=== PATIENT | male | born 1975 | race Caucasian/White ===

== ENCOUNTER 2016-06-08 00:41 | Emergency (ER) | payer SELFPAY ==
[~2016-06-08] VITALS: Ht 185.4 cm; Wt 100.0 kg
[2016-06-08 00:43] VITALS: BP 131/99; PULSE 119; RESP 24; TEMP 97.3; O2SAT 98
[2016-06-08 00:54] VITALS: BP 166/88; PULSE 108; RESP 48; O2SAT 99
[2016-06-08] MEDS ORDERED: LORazepam 2 MG/ML VIAL IV PUSH ONE (01:15)
[2016-06-08] MEDS ORDERED: SODIUM CHLORIDE 0.9% FLUSH 5 ML FLUSH IVF PRN (01:15)
[2016-06-08] MEDS ORDERED: RESP: ALBUTEROL 2.5 MG/IPRATROPIUM 0.5 MG NEB (SCH) INH ONE (01:15)
--- NOTE | 2016-06-08 01:20 | RADRPT ---
EXAM DATE/TIME: 06/08/2016 01:05 [place] COMPARISON: No previous studies available for comparison. INDICATIONS : Shortness of breath. MEDICAL HISTORY : None. SURGICAL HISTORY : None. ENCOUNTER: Initial ACUITY: 1 week PAIN SCORE: 0/10 LOCATION: Bilateral chest FINDINGS: A single view of the chest demonstrates the lungs to be symmetrically aerated without evidence of mas s, infiltrate or effusion. The cardiomediastinal contours are unremarkable. Osseous structures are intact. CONCLUSION: The lungs are clear. Miguelangel Turcios MD on June 08, 2016 at 1:18 Board Certified Radiologist. This report was verified electronically.
[2016-06-08 01:28] LABS: AUTOMATED NEUTROPHIL # 5.7 TH/MM3 (1.8-7.7); BASOPHIL % 0.4 % (0.0-2.0); EOSINOPHIL # 0.1 TH/MM3 (0-0.4); EOSINOPHIL % 1.1 % (0.0-4.0); HEMATOCRIT 41.3 % (39.0-51.0); HEMO FLAGS DIFF FINAL; LYMPH % 36.2 % (9.0-44.0); MEAN CELL VOLUME 87.5 FL (80.0-100.0); MEAN CORPUSCULAR HEMOGLOBIN 29.7 PG (27.0-34.0); MONO % 10.6 % (0.0-8.0); NEUT % 51.7 % (16.0-70.0); PLATELET COUNT 275 TH/MM3 (150-450); RED BLOOD COUNT 4.72 MIL/MM3 (4.50-5.90); RED CELL DISTRIBUTION WIDTH 13.6 % (11.6-17.2); WHITE BLOOD COUNT 10.9 TH/MM3 (4.0-11.0)
[2016-06-08 01:51] LABS: ALT (GPT) 24 U/L (12-78); ANION GAP 11 MEQ/L (5-15); AST (GOT) 17 U/L (15-37); BICARBONATE 23.3 MEQ/L (21.0-32.0); BLOOD UREA NITROGEN 18 MG/DL (7-18); CHLORIDE 108 MEQ/L (98-107); GLOMERULAR FILTRATION RATE 58 ML/MIN (>89); POTASSIUM 3.6 MEQ/L (3.5-5.1); SODIUM (NA) 142 MEQ/L (136-145)
[2016-06-08 01:53] LABS: APTT (PATIENT) 25.5 SEC (24.3-30.1); INTERNATIONAL NORMALIZED RATIO 0.9 RATIO; PROTHROMBIN TIME - PATIENT 10.1 SEC (9.8-11.6)
--- NOTE | 2016-06-08 01:54 | PD ---
HPI Chief Complaint: Respiratory Distress Time Seen by Provider: 01:02 Travel History International Travel<30 days: No Contact w/Intl Traveler<30days: No Traveled to known affect area: No History of Present Illness HPI 40-year-old male here for evaluation of shortness of breath. The patient reports that he feels as though he cannot take a deep breath. Symptoms have been going on for the last 3 hours. Reports similar symptoms about 3 weeks ago that lasted throughout the night, then resolved. He smokes about a pack of cigarettes daily. He denies history of cardiopulmonary disease. No chest pain. He states that for the last 3 weeks he has been having a cough that is sometimes productive of greenish sputum. No hemoptysis. No history of DVT or PE. No recent travel or immobilization. [facility] [place] Past Medical History Medical History: Denies Significant Hx Immunizations Current: Yes Influenza Vaccination: No Past Surgical History Surgical History: No Previous Surgery Social History Alcohol Use: Yes Tobacco Use: Yes Substance Use: No Allergies-Medications (Allergen,Severity, Reaction): Coded Allergies: No Known Allergies (Unverified , 06/08/16) Reported Meds & Prescriptions Reported Meds & Active Scripts Active No Active Prescriptions or Reported Medications Review of Systems Except as stated in HPI: all other systems reviewed are Neg Physical Exam Narrative GENERAL: Well-developed, well-nourished, taking deep breaths, speaking a few words at a time SKIN: Warm and dry. HEAD: Atraumatic. Normocephalic. EYES: Pupils equal and round. No scleral icterus. No injection or drainage. ENT: No nasal bleeding or discharge. Mucous membranes pink and moist. NECK: Trachea midline. No JVD. CARDIOVASCULAR: Regular rate and rhythm. RESPIRATORY: Taking deep breaths, speaking a few words at a time, clear and equal lung sounds bilaterally, no retractions. GASTROINTESTINAL: Abdomen soft, non-tender, nondistended. MUSCULOSKELETAL: No obvious deformities. No clubbing. No cyanosis. No edema. NEUROLOGICAL: Awake and alert. No obvious cranial nerve deficits. Motor grossly within normal limits. Normal speech. PSYCHIATRIC: Appropriate mood and affect; insight and judgment normal. Data Data Last Documented VS Vital Signs Date Time Temp Pulse Resp B/P Pulse Ox O2 Delivery O2 Flow Rate FiO2 06/08/16 00:54 108 48 166/88 99 Room Air 06/08/16 00:43 97.3 Orders Complete Blood Count With Diff (06/08/16 01:02) Comprehensive Metabolic Panel (06/08/16 01:02) B-Type Natriuretic Peptide (06/08/16 01:02) D-Dimer (06/08/16 01:02) Act Partial Throm Time (Ptt) (06/08/16 01:02) Prothrombin Time / Inr (Pt) (06/08/16 01:02) Ckmb (Isoenzyme) Profile (06/08/16 01:02) Troponin I (06/08/16 01:02) Influenzae A/B Antigen (06/08/16 01:02) Iv Access Insert/Monitor (06/08/16 01:02) Ecg Monitoring (06/08/16 01:02) Oximetry (06/08/16 01:02) Chest, Single Ap (06/08/16 01:02) Sodium Chloride 0.9% Flush (Ns Flush) (06/08/16 01:15) Albuterol-Ipratropium Neb (Duoneb Neb) (06/08/16 01:15) Lorazepam Inj (Ativan Inj) (06/08/16 01:15) CKMB (06/08/16 01:00) CKMB% (06/08/16 01:00) Labs Laboratory Tests Test 06/08/16 01:00 White Blood Count 10.9 TH/MM3 Red Blood Count 4.72 MIL/MM3 Hemoglobin 14.0 GM/DL Hematocrit 41.3 % Mean Corpuscular Volume 87.5 FL Mean Corpuscular Hemoglobin 29.7 PG Mean Corpuscular Hemoglobin 34.0 % Concent Red Cell Distribution Width 13.6 % Platelet Count 275 TH/MM3 Mean Platelet Volume 8.9 FL Neutrophils (%) (Auto) 51.7 % Lymphocytes (%) (Auto) 36.2 % Monocytes (%) (Auto) 10.6 % Eosinophils (%) (Auto) 1.1 % Basophils (%) (Auto) 0.4 % Neutrophils # (Auto) 5.7 TH/MM3 Lymphocytes # (Auto) 4.0 TH/MM3 Monocytes # (Auto) 1.2 TH/MM3 Eosinophils # (Auto) 0.1 TH/MM3 Basophils # (Auto) 0.0 TH/MM3 CBC Comment DIFF FINAL Differential Comment Prothrombin Time 10.1 SEC Prothromb Time International 0.9 RATIO Ratio Activated Partial 25.5 SEC Thromboplast Time D-Dimer Quantitative (PE/DVT) LESS THAN 0.19 MG/L FEU Sodium Level 142 MEQ/L Potassium Level 3.6 MEQ/L Chloride Level 108 MEQ/L Carbon Dioxide Level 23.3 MEQ/L Anion Gap 11 MEQ/L Blood Urea Nitrogen 18 MG/DL Creatinine 1.37 MG/DL Estimat Glomerular Filtration 58 ML/MIN Rate Random Glucose 77 MG/DL Calcium Level 8.6 MG/DL Total Bilirubin 0.2 MG/DL Aspartate Amino Transf 17 U/L (AST/SGOT) Alanine Aminotransferase 24 U/L (ALT/SGPT) Alkaline Phosphatase 53 U/L Total Creatine Kinase 239 U/L Creatine Kinase MB 1.2 NG/ML Troponin I LESS THAN 0.02 NG/ML B-Type Natriuretic Peptide 8 PG/ML Total Protein 7.4 GM/DL Albumin 4.1 GM/DL [facility] Medical Decision Making Medical Screen Exam Complete: Yes Emergency Medical Condition: Yes Interpretation(s) Sinus tachycardia, rate 110, normal axis, normal intervals, no acute ischemic normality. Differential Diagnosis Anxiety, PE, ACS, pneumonia, reactive airway disease Narrative Course Initial vital signs show heart rate 119, blood pressure 131/99, pulse ox 98% on room air, oral temp of 97.3F. CBC is unremarkable. CMP is remarkable for creatinine 1.37, GFR 58, otherwise unremarkable. BNP is 8. Cardiac enzymes are negative. D-dimer is less than 0.19. Influenza is negative. Chest x-ray: The lungs are clear. The patient was given a dose of IV Ativan as well as 1 DuoNeb treatment. On reassessment he is feeling much improved. I believe his symptoms are more likely anxiety related. I do not believe his symptoms are cardiopulmonary in nature. His lung sounds are clear and equal bilaterally. He has good air movement bilaterally. O2 saturation is 99% on room air. He is stable for discharge home with outpatient follow-up with a primary care physician this week. He was informed on when to return to the emergency department. He verbalizes understanding and agreement with plan. Diagnosis Primary Impression: Dyspnea Qualified Code: R06.02 - Shortness of breath Referrals: Primary Care Physician 3 days Additional Instructions: Follow-up with a primary care physician this week. Return to the emergency department for worsening symptoms or any other concerns. Scripts No Active Prescriptions or Reported Meds Disposition: 01 DISCHARGE HOME Condition: Stable Price Mccoy MD Jun 08, 2016 01:54
[2016-06-08 01:55] LABS: ALKALINE PHOSPHATASE 53 U/L (45-117); CREATINE KINASE 239 U/L (39-308); TOTAL BILIRUBIN ADULT 0.2 MG/DL (0.2-1.0)
[2016-06-08 02:07] LABS: CKMB 1.2 NG/ML (0.5-3.6)
[2016-06-08 02:28] VITALS: BP 135/66
--- NOTE | 2016-06-08 18:46 | EKG ---
Date Performed: 06/08/2016 Time Performed: 00:55:32 PTAGE: 40 years EKG: SINUS TACHYCARDIA POSSIBLE RIGHT VENTRICULAR CONDUCTION DELAY ABNORMAL RHYTHM ECG NO PREVIOUS TRACING DOCTOR: Jayson Alvarez Interpretating Date/Time 06/08/2016 18:46:16
== END 2016-06-08 02:44 | disposition home or self-care (01) ==
LOC: NEPE 00:41
DX: R06.02 Shortness of breath (principal); F17.210 Nicotine dependence, cigarettes, uncomplicated; R05 Cough; R00.0 Tachycardia, unspecified
CPT/HCPCS: 71010; 80053; 82550; 82552; 83880; 84484; 85025; 85379; 85610; 85730; 87804; 93005; 94664; 96374; 99283; J2060